=== PATIENT | female | born 1980 | race African-American/Black ===

== ENCOUNTER 2019-10-21 09:20 | Outpatient (CLI) | payer OTHER ==
--- NOTE | 2019-10-21 09:41 | RAD ---
Exam: Right fingers 3 views: HISTORY: Infection right second finger COMPARISON: None FINDINGS: Soft tissue swelling of the index finger. No evidence for bony erosive or destructive changes. No evidence for fracture, dislocation, or other significant acute osseous abnormality. IMPRESSION: Soft tissue swelling without other acute process.
== END 2019-10-21 09:21 | disposition home or self-care (01) ==
LOC: BICRAD 09:20
DX: L03.011 Cellulitis of right finger (principal); M79.89 Other specified soft tissue disorders